=== PATIENT | female | born 1980 | race Caucasian/White ===

== ENCOUNTER 2020-08-04 10:22 | Inpatient (IN) | payer OTHER ==
[~2020-08-04] VITALS: Ht 165.1 cm; Wt 70.3 kg
== END 2020-08-06 11:16 | disposition home or self-care (01) | DRG 336 ==
LOC: ER 10:22 → SURG 12:58 → O/R 12:58 → SURG 18:34
PROVIDERS: ADMIT Surgery; ATTEND Surgery
PROC: 0WQF4ZZ Repair Abdominal Wall, Percutaneous Endoscopic Approach (ICD-10-PCS; 2020-08-04)
PROC: 0DBU4ZZ Excision of Omentum, Percutaneous Endoscopic Approach (ICD-10-PCS; 2020-08-04)
PROC: 0DNW4ZZ Release Peritoneum, Percutaneous Endoscopic Approach (ICD-10-PCS; principal; 2020-08-04 13:00)
DX: K43.0 Incisional hernia with obstruction, without gangrene (principal); R18.8 Other ascites; K66.0 Peritoneal adhesions (postprocedural) (postinfection); Z20.828 Contact with and (suspected) exposure to other viral communicable diseases

== ENCOUNTER 2021-02-01 07:24 | Emergency (ER) | payer OTHER ==
[~2021-02-01] VITALS: Ht 165.1 cm; Wt 77.6 kg
== END 2021-02-01 14:40 | disposition home or self-care (01) ==
LOC: ER 07:24
DX: R10.13 Epigastric pain (principal); K43.6 Other and unspecified ventral hernia with obstruction, without gangrene

== ENCOUNTER 2021-04-25 07:00 | Day surgery (SDC) | payer OTHER ==
[~2021-04-25] VITALS: Ht 165.1 cm; Wt 77.1 kg
[2021-04-25] MEDS ORDERED: COLACE100 MG PO (10:23)
[2021-04-25] MEDS ORDERED: NEURONTIN600 M1 PO (10:23)
[2021-04-25] MEDS ORDERED: PERCOCET 5-3251 EACH PO (10:23)
== END 2021-04-25 12:40 | disposition home or self-care (01) ==
LOC: CIR.AMB 07:00 → SURH 07:00 → EDSTATUS 11:00 → CIR.AMB 12:40 → O/R 15:20
PROVIDERS: ATTEND Surgery
DX: K43.0 Incisional hernia with obstruction, without gangrene (principal); Z20.822 Contact with and (suspected) exposure to COVID-19